=== PATIENT | female | born 1965 | race African-American/Black ===

== ENCOUNTER 2021-01-09 14:12 | Inpatient (IN) | payer OTHER ==
[2021-01-09 15:15] LABS: VENOUS BASE EXCESS -2.4 mmol/L (-2-2); VENOUS O2 SATURATION 28.6 % (70-80); VENOUS PCO2 45.9 mmHg (38-52); VENOUS PH 7.331 (7.310-7.410)
[2021-01-09 15:18] LABS: BASO % 0.7 % (0-2.0); EOS % 0.4 % (0-4.5); HEMATOCRIT 40.3 % (32.4-45.2); HEMOGLOBIN 12.9 GM/dL (10.7-15.3); LYMPH % 23.7 % (8-40); MCH 28.1 pg (25.7-33.7); MEAN CELL VOLUME 87.7 fl (80-96); MEAN PLT VOLUME 7.6 fl (7.5-11.1); MONO % 6.4 % (3.8-10.2); NEUT % 68.8 % (42.8-82.8); PLATELET COUNT 206 10^3/uL (134-434); RBC 4.59 M/mm3 (3.60-5.2); RDW 17.5 % (11.6-15.6); WHITE BLOOD COUNT 4.9 K/mm3 (4.0-10.0)
[2021-01-09 15:25] LABS: INR 1.53 (0.83-1.09); PROTHROMBIN TIME (PATIENT) 17.2 SEC (9.7-13.0)
[2021-01-09 15:41] LABS: CHLORIDE 106 mmol/L (98-107); SODIUM 143 mmol/L (136-145)
[2021-01-09 15:43] LABS: ALBUMIN 2.9 g/dl (3.4-5.0); ANION GAP 15 MMOL/L (8-16); CO2 22 mmol/L (21-32)
[2021-01-09 15:44] LABS: BLOOD UREA NITROGEN 16.3 mg/dL (7-18); GLUCOSE,RANDOM 103 mg/dL (74-106); MAGNESIUM 1.8 mg/dL (1.8-2.4)
[2021-01-09 15:46] LABS: SGPT/ALT 21 U/L (13-61)
[2021-01-09 15:47] LABS: CREATININE 1.2 mg/dL (0.55-1.3); SGOT/AST 22 U/L (15-37)
[2021-01-09 15:48] LABS: TOT PROT 7.1 g/dl (6.4-8.2)
[2021-01-09 15:49] LABS: ALK PHOS 105 U/L (45-117)
[2021-01-09 15:52] LABS: N-TERMINAL BNP 3655.9 pg/ml (5-125)
[2021-01-09] MEDS ORDERED: FUROSEMIDE 40 MG/4 ML INJECTABLE VIAL IVPUSH ONE (15:56)
[2021-01-09] MEDS ORDERED: FUROSEMIDE 40 MG/4 ML INJECTABLE VIAL ONE (16:10)
[2021-01-09 16:52] LABS: EPI CELLS 28 /uL (0-25.1); HYALINE CASTS 2 /uL (0-3.1); URINE APPEARANCE CLEAR; URINE BACTERIA 67 /uL (0-1359); URINE BILIRUBIN NEGATIVE (NEGATIVE); URINE COLOR YELLOW; URINE GLUCOSE (UA) NEGATIVE (NEGATIVE); URINE KETONE NEGATIVE (NEGATIVE); URINE LEUK ESTERASE NEGATIVE (NEGATIVE); URINE NITRITE NEGATIVE (NEGATIVE); URINE PROTEIN 3+ (NEGATIVE); URINE RBC 9 /uL (0-23.9); URINE WBC 20 /uL (0-25.8)
[2021-01-09] MEDS: GABAPENTIN 300 MG CAPSULE PO SCH (23:33)
[2021-01-09] MEDS: BUDESONIDE/FORMETEROL FUMARATE 160/4.5 mcg INHALER IH SCH (23:33)
[2021-01-09 23:42] LABS: CHLORIDE 106 mmol/L (98-107); SODIUM 141 mmol/L (136-145)
[2021-01-09 23:44] LABS: CALCIUM 9.1 mg/dL (8.5-10.1)
[2021-01-09 23:45] LABS: ANION GAP 13 MMOL/L (8-16); BLOOD UREA NITROGEN 15.3 mg/dL (7-18); CO2 22 mmol/L (21-32); GLUCOSE,RANDOM 153 mg/dL (74-106)
[2021-01-09 23:48] LABS: CREATININE 1.2 mg/dL (0.55-1.3)
[2021-01-10] MEDS ORDERED: GABAPENTIN 100 MG CAPSULE ONE ×2 (04:26→07:34)
[2021-01-10] MEDS: GABAPENTIN 300 MG CAPSULE PO SCH ×3 (08:31→22:16)
[2021-01-10] MEDS ORDERED: FUROSEMIDE 40 MG/4 ML INJECTABLE VIAL ONE (10:30)
[2021-01-10] MEDS ORDERED: SPIRONOLACTONE 25 MG TABLET ONE (10:30)
[2021-01-10] MEDS: SPIRONOLACTONE 25 MG TABLET PO SCH (10:38)
[2021-01-10] MEDS: BUDESONIDE/FORMETEROL FUMARATE 160/4.5 mcg INHALER IH SCH ×2 (10:39→22:16)
[2021-01-10] MEDS: FUROSEMIDE 40 MG/4 ML INJECTABLE VIAL IVPUSH SCH (10:39)
[2021-01-10] MEDS: INSULIN SLIDING SCALE (NOVOLOG) 1 VIAL SQ SCH ×2 (17:02→23:00)
[2021-01-11 08:14] LABS: BASO % 0.9 % (0-2.0); EOS % 0.3 % (0-4.5); HEMATOCRIT 41.5 % (32.4-45.2); HEMOGLOBIN 13.3 GM/dL (10.7-15.3); LYMPH % 14.3 % (8-40); MCH 27.8 pg (25.7-33.7); MCHC 32.1 g/dl (32.0-36.0); MEAN CELL VOLUME 86.7 fl (80-96); MEAN PLT VOLUME 7.6 fl (7.5-11.1); MONO % 9.6 % (3.8-10.2); NEUT % 74.9 % (42.8-82.8); PLATELET COUNT 218 10^3/uL (134-434); RBC 4.79 M/mm3 (3.60-5.2); RDW 17.2 % (11.6-15.6)
[2021-01-11 08:34] LABS: CALCIUM 9.2 mg/dL (8.5-10.1)
[2021-01-11 08:35] LABS: ALBUMIN 2.9 g/dl (3.4-5.0); BLOOD UREA NITROGEN 17.4 mg/dL (7-18)
[2021-01-11 08:38] LABS: CREATININE 1.1 mg/dL (0.55-1.3)
[2021-01-11 08:39] LABS: BILIRUBIN,TOTAL 1.6 mg/dL (0.2-1)
[2021-01-11] MEDS: INSULIN SLIDING SCALE (NOVOLOG) 1 VIAL SQ SCH ×3 (09:01→23:00)
[2021-01-11] MEDS ORDERED: FUROSEMIDE 40 MG/4 ML INJECTABLE VIAL ONE (10:06)
[2021-01-11] MEDS ORDERED: PT OWN MED DRAWER 7, Y5N ONE (11:09)
[2021-01-11] MEDS: BUDESONIDE/FORMETEROL FUMARATE 160/4.5 mcg INHALER IH SCH (11:11)
[2021-01-11] MEDS: FUROSEMIDE 40 MG/4 ML INJECTABLE VIAL IVPUSH SCH (11:12)
[2021-01-11] MEDS: SPIRONOLACTONE 25 MG TABLET PO SCH (12:27)
[2021-01-11] MEDS: ENOXAPARIN NA (PORCINE) 100 MG/1 ML DISP.SYRIN SQ SCH ×2 (12:27→23:15)
[2021-01-11] MEDS: GABAPENTIN 300 MG CAPSULE PO SCH ×3 (12:27→23:15)
[2021-01-11] MEDS ORDERED: ENOXAPARIN NA (PORCINE) 100 MG/1 ML DISP.SYRIN SQ ONE (12:34)
[2021-01-11 23:08] VITALS: BMI 30.4
[2021-01-12] MEDS ORDERED: PT OWN MED DRAWER 7, Y5N ONE ×2 (06:51→09:00)
[2021-01-12] MEDS: BUDESONIDE/FORMETEROL FUMARATE 160/4.5 mcg INHALER IH SCH ×2 (06:53→09:10)
[2021-01-12] MEDS: INSULIN SLIDING SCALE (NOVOLOG) 1 VIAL SQ SCH ×4 (06:53→17:09)
[2021-01-12] MEDS: GABAPENTIN 300 MG CAPSULE PO SCH ×2 (06:54→13:55)
[2021-01-12] MEDS: FUROSEMIDE 40 MG/4 ML INJECTABLE VIAL IVPUSH SCH (09:09)
[2021-01-12] MEDS: SPIRONOLACTONE 25 MG TABLET PO SCH (09:09)
[2021-01-12] MEDS: ENOXAPARIN NA (PORCINE) 100 MG/1 ML DISP.SYRIN SQ SCH (09:09)
[2021-01-12 16:31] VITALS: BP 122/80; PULSE 136; TEMP 98.4
== END 2021-01-12 17:30 | disposition short-term general hospital (02) | DRG 194 ==
LOC: JER 14:12 → JERBED 17:31 → J4W 01-11 22:15
PROVIDERS: ADMIT Internal Medicine; ATTEND Family Medicine
DX: I11.0 Hypertensive heart disease with heart failure (principal); I50.23 Acute on chronic systolic (congestive) heart failure; G81.90 Hemiplegia, unspecified affecting unspecified side; J44.9 Chronic obstructive pulmonary disease, unspecified; E11.9 Type 2 diabetes mellitus without complications; I25.10 Atherosclerotic heart disease of native coronary artery without angina pectoris; R06.09 Other forms of dyspnea; F17.210 Nicotine dependence, cigarettes, uncomplicated; Z95.810 Presence of automatic (implantable) cardiac defibrillator; R06.02 Shortness of breath; R06.01 Orthopnea
CPT/HCPCS: 36415; 71045-TC-FY; 80048; 80053; 81003; 82550; 82803; 82962; 83735; 83880; 84484; 85025; 85610; 85730; 87040; 87086; 93005; 93010; 93306-TC; 99285-25; C9803; U0003; U0005